=== PATIENT | female | born 1970 | race Caucasian/White ===

== ENCOUNTER 2021-07-16 07:59 | Observation (INO) ==
[~2021-07-16 07:59] MED LIST: Buffered Lidocaine 1% SYRIN 1 ml INTRADERM ONE; Lactated Ringers 1000 ml BAG 1,000 ML IV SCH
[2021-07-16] MEDS ORDERED: Buffered Lidocaine 1% SYRIN 1 ml INTRADERM ONE (08:55)
[2021-07-16] MEDS ORDERED: Midazolam 2 mg/2 ml VIAL 1 mg/ml 2 ml VIAL (2 mg) ONE (08:56)
[2021-07-16] MEDS ORDERED: Propofol 10 MG/ML 20 ML BTL ONE (09:56)
[2021-07-16] MEDS ORDERED: Succinylcholine 200 mg VIAL 20 mg/ml 10 ml VIAL (200 mg) ONE (09:56)
[2021-07-16] MEDS ORDERED: Lidocaine 2% PF 5 ML VIAL ONE (09:56)
[2021-07-16] MEDS ORDERED: fentaNYL 100 mcg/2 ml 50 MCG/ML VIAL ONE ×4 (09:57→16:47)
[2021-07-16] MEDS ORDERED: Methylene Blue 0.5 % 50 MG/10 ML AMP IV ONE (10:27)
[2021-07-16] MEDS ORDERED: Dexamethasone IV 4 MG/ML VIAL 1 ml VIAL ONE ×3 (10:33→14:10)
[2021-07-16] MEDS ORDERED: DiMENhydriNATE IV 50 mg/ml 1 ml VIAL IV PUSH PRN (10:40)
[2021-07-16] MEDS ORDERED: Naloxone 0.4 mg VIAL 0.4 mg/ml 1 ml VIAL IV PRN (10:40)
[2021-07-16] MEDS ORDERED: Clindamycin 600 MG/D5W BAG 600 MG/50 ML BAG IV ONE (10:49)
[2021-07-16] MEDS ORDERED: fentaNYL 250 mcg/5 ml 50 MCG/ML 5 ml VIAL (250 MCG) ONE (12:38)
[2021-07-16] MEDS ORDERED: Ondansetron 4 mg VIAL 2 MG/ML 2 ml VIAL ONE ×2 (14:10)
[2021-07-16] MEDS ORDERED: Acetaminophen IV 1 GM/100ML VI 100 ML ONE (14:39)
[2021-07-16] MEDS ORDERED: Acetaminophen IV 1 GM/100ML 100 ML IV ONE (14:45)
[2021-07-16] MEDS ORDERED: HYDROmorphone 0.5 MG/0.5 ML SYRINGE ONE ×2 (15:27→15:41)
[2021-07-16] MEDS: fentaNYL 100 mcg/2 ml 50 MCG/ML VIAL IV PRN ×4 (16:50→17:23)
[2021-07-16] MEDS ORDERED: oxyCODONE 5 mg/5 ml ORAL.SOLN UDC PO PRN (16:58)
[2021-07-16] MEDS ORDERED: Labetalol IV 5 MG/ML 20 ml VIAL IV PUSH PRN (17:08)
[2021-07-16] MEDS ORDERED: Labetalol IV 5 MG/ML 20 ml VIAL ONE (17:16)
[2021-07-16] MEDS ORDERED: Ondansetron 4 mg VIAL 2 MG/ML 2 ml VIAL IV PRN (17:22)
[2021-07-16] MEDS: oxyCODONE 5 mg/5 ml ORAL.SOLN UDC PO PRN (19:40)
[2021-07-16] MEDS ORDERED: LACTATED RINGERS 1000 ML BAG IV SCH (20:00)
[2021-07-16] MEDS: Clindamycin 600 MG/D5W BAG IV SCH (20:44)
[2021-07-16] MEDS: Venlafaxine XR 75 mg PO SCH (20:45)
[2021-07-16] MEDS ORDERED: Prochlorperazine 5 mg/ml 2 ml VIAL (10 mg) IV PRN (22:29)
[2021-07-17] MEDS: Clindamycin 600 MG/D5W BAG IV SCH ×2 (03:57→11:52)
[2021-07-17] MEDS: oxyCODONE 5 mg/5 ml ORAL.SOLN UDC PO PRN (09:00)
[2021-07-17] MEDS: Heparin 5000 UNITS/ML 1 mL VIAL SUBCUT SCH ×2 (09:00→22:34)
[2021-07-17] MEDS: Venlafaxine XR 75 mg PO SCH (22:33)
[2021-07-18] MEDS: oxyCODONE 5 mg/5 ml ORAL.SOLN UDC PO PRN (07:14)
[2021-07-18 07:25] VITALS: BP 127/64
[2021-07-18] MEDS: Heparin 5000 UNITS/ML 1 mL VIAL SUBCUT SCH (08:34)
== END 2021-07-18 11:00 | disposition home or self-care (01) ==
LOC: OR 07:59 → SSU 16:54 → INTOOBSV 16:54
PROVIDERS: ADMIT Hospitalist; ATTEND Hospitalist

== ENCOUNTER 2022-04-09 16:22 | Inpatient (IN) ==
[2022-04-09] MEDS ORDERED: Lactated Ringers 1000 ml BAG 1,000 ML IV ONE (16:47)
[2022-04-09 18:04] LABS: ABS Lymphocytes 0.4 10^3/ul (1.0-4.8); ABS Monocytes 0.4 10^3/ul (0-0.8); ABS Neutrophils 8.1 10^3/ul (1.5-7.7); Hematocrit 35 % (35-47); Hemoglobin 11.9 g/dL (12.0-16.0); Lymphocyte % 4.8 %; Mean Corpuscular HGB Conc 34 g/dL (31-36); Mean Corpuscular Hemoglobin 34 pg (27-31); Mean Corpuscular Volume 101 fL (80-97); Mean Platelet Volume 7.1 fL (7.4-10.4); Platelet Count 231 10^3/uL (150-450); Red Blood Count 3.47 10^6 /uL (3.70-4.87); Red Cell Distribution Width 14 % (10-15)
[2022-04-09 18:43] LABS: ALT 15 U/L (7-52); AST 39 U/L (13-39); Albumin 4.3 g/dL (3.2-5.2); Albumin/Globulin Ratio 1.7 (1-3); Alkaline Phosphatase 73 U/L (35-149); Anion Gap 9 mmol/L (2-11); Blood Urea Nitrogen 17 mg/dL (6-24); C Reactive Protein 7.61 mg/L (<8.01); CO2 Carbon Dioxide 26 mmol/L (22-32); Calcium 9.4 mg/dL (8.6-10.3); Chloride 100 mmol/L (101-111); Globulin 2.5 g/dL (2-4); Glucose 96 mg/dL (70-100); Magnesium 2.2 mg/dL (1.9-2.7); Potassium 3.9 mmol/L (3.5-5.0); Sodium 135 mmol/L (135-145); Total Protein 6.8 g/dL (6.4-8.9); eGFR CKD-EPI 59.3 (>60)
[2022-04-09 19:35] LABS: TSH Ultra Thyroid Stim Horm 66.99 mcIU/mL (0.34-5.60)
[2022-04-09] MEDS ORDERED: Dexamethasone IV 4 MG/ML VIAL 1 ml VIAL IV SLOW PU ONE (19:57)
[2022-04-09] MEDS ORDERED: Enoxaparin 40 MG/0.4 ML SYR SUBCUT SCH (21:00)
[2022-04-09] MEDS: NS 0.9% 1000 ml BAG 1,000 ML IV SCH (21:22)
[2022-04-09 21:50] LABS: Total T3 60 ng/dL (87-178)
[2022-04-09] MEDS: Pantoprazole VIAL 40 MG VIAL IV SCH (22:33)
[2022-04-09 22:38] LABS: Free T4 < 0.25 ng/dL (0.61-1.12)
[2022-04-09] MEDS ORDERED: Lorazepam PYXIS KEY PRN (23:34)
[2022-04-09] MEDS ORDERED: LORazepam 2 mg VIAL 1 ml IV PUSH PRN (23:34)
[2022-04-10] MEDS: Dexamethasone IV 4 MG/ML VIAL 1 ml VIAL IV SLOW PU SCH ×4 (03:41→22:18)
[2022-04-10] MEDS: NS 0.9% 1000 ml BAG 1,000 ML IV SCH (22:16)
[2022-04-10] MEDS: Pantoprazole VIAL 40 MG VIAL IV SCH (22:17)
[2022-04-11] MEDS: Dexamethasone IV 4 MG/ML VIAL 1 ml VIAL IV SLOW PU SCH ×4 (07:00→22:05)
[2022-04-11] MEDS: NS 0.9% 1000 ml BAG 1,000 ML IV SCH (08:19)
[2022-04-11] MEDS ORDERED: Enoxaparin 40 MG/0.4 ML SYR SUBCUT SCH (16:00)
[2022-04-11 16:15] LABS: Urine Appearance Clear; Urine Bilirubin Negative (Negative); Urine Blood 2+ (Negative); Urine Color Yellow; Urine Glucose Negative (Negative); Urine Ketones Trace (Negative); Urine Nitrite Negative (Negative); Urine Protein Negative (Negative); Urine Urobilinogen Negative (Negative)
[2022-04-11 17:05] LABS: Urine Bacteria Absent (Absent); Urine Red Blood Cell Trace(0-2/hpf) (Absent); Urine Squamous Epithelial Cell Present (Absent); Urine White Blood Cell Absent (Absent)
[2022-04-11] MEDS: Pantoprazole VIAL 40 MG VIAL IV SCH (22:05)
[2022-04-12] MEDS: NS 0.9% 1000 ml BAG 1,000 ML IV SCH (00:24)
[2022-04-12] MEDS: Dexamethasone IV 4 MG/ML VIAL 1 ml VIAL IV SLOW PU SCH ×2 (03:52→09:03)
[2022-04-12 16:12] VITALS: BP 109/71
== END 2022-04-12 16:43 | disposition home or self-care (01) | DRG 110 ==
LOC: ED 16:22 → INTOOBSV 20:40 → EDHOLD 20:40 → SUATTDRO 20:40 → SSU 04-10 00:23
PROVIDERS: ADMIT Student in an Organized Health Care Education/Training Program; ATTEND Hospitalist

== ENCOUNTER 2023-08-04 15:26 | Inpatient (IN) ==
[2023-08-04] MEDS ORDERED: Lactated Ringers 1000 ml BAG 1,000 ML IV ONE ×3 (17:38→22:30)
[2023-08-04 17:51] LABS: Urine Appearance Clear; Urine Bilirubin Negative (Negative); Urine Blood 1+ (Negative); Urine Color Yellow; Urine Glucose Negative (Negative); Urine Ketones Negative (Negative); Urine Nitrite Negative (Negative); Urine Protein Negative (Negative); Urine Specific Gravity 1.014 (1.002-1.030); Urine Urobilinogen Positive (Negative)
[2023-08-04 17:58] LABS: Hematocrit 24.3 % (35-45); Red Blood Count 2.43 10^6/uL (3.63-4.92); Red Cell Distribution Width 25.8 % (12-17); White Blood Count 13.2 10^3/uL (3.8-11.8)
[2023-08-04 18:01] LABS: Urine Bacteria Absent (Absent); Urine Red Blood Cell 3+(>10/hpf) (Absent); Urine Squamous Epithelial Cell Present (Absent); Urine White Blood Cell 1+(6-10/hpf) (Absent)
[2023-08-04 18:09] LABS: Albumin 3.1 g/dL (3.2-5.2); Albumin/Globulin Ratio 1.1 (1-3); Calcium 8.3 mg/dL (8.6-10.3); Creatinine, Serum 0.86 mg/dL (0.51-0.95); Globulin 2.9 g/dL (2-4); Magnesium 1.6 mg/dL (1.9-2.7); Potassium 3.8 mmol/L (3.5-5.0); Total Bilirubin 0.6 mg/dL (0.2-1.0); eGFR CKD-EPI 81.7 (>60)
[2023-08-04 18:17] LABS: ABS Lymphocytes 0.9 10^3/uL (1.0-4.8); ABS Monocytes 0.8 10^3/uL (0.0-0.9); ABS Neutrophils 11.4 10^3/uL (1.5-7.6); Mean Platelet Volume 7.4 fL (7.5-11.2); Platelet Count 94 10^3/uL (150-450)
[2023-08-04] MEDS ORDERED: Magnesium Sulfate IV 1GM/100ML 1 GM/100 ML BAG IV ONE (18:20)
[2023-08-04 18:34] LABS: TSH Ultra Thyroid Stim Horm 2.86 mcIU/mL (0.34-5.60)
[2023-08-04 19:25] LABS: High Sensitivity Troponin 1 Hr 9 pg/mL (<15)
[2023-08-04 20:11] LABS: C Reactive Protein 87.47 mg/L (<8.01)
[2023-08-04 20:15] LABS: Rapid COVID-19 Molecular Undetected (Undetected)
[2023-08-04] MEDS ORDERED: Azithromycin 500 mg/250 ml NS 500 MG/250 ML BAG IVPB ONE (20:28)
[2023-08-04] MEDS ORDERED: Cefepime 2 GM in Dextrose 2 GM/50 ML BAG IV ONE (20:28)
[2023-08-04 20:38] LABS: Influenza A Molecular Negative (Negative); Influenza B Molecular Negative (Negative)
[2023-08-04] MEDS ORDERED: Norepinephrine 4 MG/250mL D5W 4,000 MCG/250 ML BAG IV SCH (22:00)
[2023-08-04] MEDS ORDERED: Lactated Ringers 1000 ml BAG 1,000 ML IV SCH (23:45)
[2023-08-05] MEDS: Lactated Ringers 1000 ml BAG 1,000 ML IV SCH ×2 (00:59→09:37)
[2023-08-05] MEDS ORDERED: cefTRIAXone 1 gm/50 mL D5W 1 GM/50 ML BAG IV SCH ×2 (09:00)
[2023-08-05] MEDS: Venlafaxine XR 75 mg PO SCH (09:28)
[2023-08-05] MEDS: Cefepime 2 GM in Dextrose 2 GM/50 ML BAG IV SCH ×2 (09:29→23:09)
[2023-08-05] MEDS ORDERED: Vancomycin 1,000 MG in NS 0.9% 250 ml 250 ML IVPB ONE (10:00)
[2023-08-05] MEDS ORDERED: Vancomycin 750 MG in NS 0.9% 250 ML IVPB SCH (11:00)
[2023-08-05 13:01] LABS: Hematocrit 15.5 % (35-45); Hemoglobin 5.2 g/dL (11.5-14.3); Mean Corpuscular Hemoglobin 33.9 pg (27-33); Mean Corpuscular Hgb Conc 33.7 g/dL (31-36); Mean Corpuscular Volume 100.8 fL (80-97); Red Blood Count 1.54 10^6/uL (3.63-4.92); Red Cell Distribution Width 25.6 % (12-17); White Blood Count 7.3 10^3/uL (3.8-11.8)
[2023-08-05 13:04] LABS: Albumin 2.6 g/dL (3.2-5.2); Albumin/Globulin Ratio 0.9 (1-3); Creatinine, Serum 0.63 mg/dL (0.51-0.95); Globulin 2.8 g/dL (2-4); Total Bilirubin 0.8 mg/dL (0.2-1.0); Total Protein 5.4 g/dL (6.4-8.9); eGFR CKD-EPI 107.3 (>60)
[2023-08-05 13:52] LABS: Hematocrit 22.1 % (35-45); Hemoglobin 7.6 g/dL (11.5-14.3); Mean Corpuscular Hemoglobin 34.3 pg (27-33); Mean Corpuscular Hgb Conc 34.3 g/dL (31-36); Mean Corpuscular Volume 99.8 fL (80-97); Mean Platelet Volume 7.6 fL (7.5-11.2); Platelet Count 74 10^3/uL (150-450); Red Blood Count 2.21 10^6/uL (3.63-4.92); Red Cell Distribution Width 25.5 % (12-17); White Blood Count 9.5 10^3/uL (3.8-11.8)
[2023-08-05 13:58] LABS: ABS Lymphocytes 0.4 10^3/uL (1.0-4.8); ABS Monocytes 0.5 10^3/uL (0.0-0.9); ABS Neutrophils 6.3 10^3/uL (1.5-7.6); Lymphocyte % 6.1 %; Mean Platelet Volume 7.6 fL (7.5-11.2); Nucleated Red Blood Cells % 0.1 %/100WBC (0.0-0.8); Platelet Count 54 10^3/uL (150-450)
[2023-08-05] MEDS ORDERED: Lactated Ringers 1000 ml BAG 1,000 ML IV SCH (15:01)
[2023-08-05] MEDS: Vancomycin 750 MG in NS 0.9% 250 ML IVPB SCH (23:47)
[2023-08-06 06:09] LABS: Calcium 8.2 mg/dL (8.6-10.3); Creatinine, Serum 0.62 mg/dL (0.51-0.95); Hematocrit 20.3 % (35-45); Hemoglobin 6.8 g/dL (11.5-14.3); Magnesium 1.7 mg/dL (1.9-2.7); Mean Corpuscular Hemoglobin 33.6 pg (27-33); Mean Corpuscular Hgb Conc 33.4 g/dL (31-36); Mean Corpuscular Volume 100.7 fL (80-97); Mean Platelet Volume 7.9 fL (7.5-11.2); Phosphorus 2.3 mg/dL (2.5-5.0); Platelet Count 68 10^3/uL (150-450); Potassium 3.8 mmol/L (3.5-5.0); Red Blood Count 2.02 10^6/uL (3.63-4.92); Red Cell Distribution Width 25.5 % (12-17); White Blood Count 5.7 10^3/uL (3.8-11.8); eGFR CKD-EPI 107.8 (>60)
[2023-08-06 06:23] LABS: ABS Lymphocytes 0.5 10^3/uL (1.0-4.8); ABS Monocytes 0.3 10^3/uL (0.0-0.9); ABS Neutrophils 4.9 10^3/uL (1.5-7.6); ABS Nucleated RBC 0.01 10^3/ul; Eosinophil % 0.4 %; Lymphocyte % 8.2 %; Nucleated Red Blood Cells % 0.1 %/100WBC (0.0-0.8)
[2023-08-06] MEDS: Cefepime 2 GM in Dextrose 2 GM/50 ML BAG IV SCH ×2 (09:49→21:31)
[2023-08-06] MEDS: Potassium & Sodium Phos 250 mg = 1 PACKET PO SCH ×2 (09:52→21:34)
[2023-08-06] MEDS: Venlafaxine XR 75 mg PO SCH (09:52)
[2023-08-06] MEDS: Vancomycin 750 MG in NS 0.9% 250 ML IVPB SCH (14:23)
[2023-08-07] MEDS: Vancomycin 750 MG in NS 0.9% 250 ML IVPB SCH ×2 (00:01→11:59)
[2023-08-07 06:57] LABS: Calcium 8.2 mg/dL (8.6-10.3); Creatinine, Serum 0.68 mg/dL (0.51-0.95); Magnesium 1.6 mg/dL (1.9-2.7); Phosphorus 2.6 mg/dL (2.5-5.0); Potassium 3.8 mmol/L (3.5-5.0); eGFR CKD-EPI 105.4 (>60)
[2023-08-07 06:59] LABS: Hematocrit 25.1 % (35-45); Hemoglobin 8.6 g/dL (11.5-14.3); Mean Corpuscular Hemoglobin 32.9 pg (27-33); Mean Corpuscular Hgb Conc 34.2 g/dL (31-36); Mean Platelet Volume 7.7 fL (7.5-11.2); Platelet Count 77 10^3/uL (150-450); Red Blood Count 2.62 10^6/uL (3.63-4.92); White Blood Count 4.6 10^3/uL (3.8-11.8)
[2023-08-07 07:22] LABS: ABS Eosinophils 0.1 10^3/uL (0.0-0.5); ABS Lymphocytes 0.5 10^3/uL (1.0-4.8); ABS Monocytes 0.5 10^3/uL (0.0-0.9); ABS Neutrophils 3.6 10^3/uL (1.5-7.6); ABS Nucleated RBC 0.01 10^3/ul; Eosinophil % 1.2 %; Lymphocyte % 10.8 %; Nucleated Red Blood Cells % 0.1 %/100WBC (0.0-0.8)
[2023-08-07] MEDS ORDERED: Magnesium Sulfate 2 gm BAG 2 GM/50 ML BAG IVPB ONE (07:50)
[2023-08-07] MEDS: Potassium & Sodium Phos 250 mg = 1 PACKET PO SCH ×2 (09:12→20:05)
[2023-08-07] MEDS: Venlafaxine XR 75 mg PO SCH (09:13)
[2023-08-07] MEDS ORDERED: Vancomycin Trough Check NOTE FOLLOW UP ONE (10:30)
[2023-08-07] MEDS: Cefepime 2 GM in Dextrose 2 GM/50 ML BAG IV SCH ×2 (10:45→19:56)
[2023-08-07] MEDS ORDERED: Vancomycin per Pharmacy 1 EA NOTE FOLLOW UP PRN (16:05)
[2023-08-07] MEDS: Vancomycin 1,000 MG in NS 0.9% 250 ml 250 ML IVPB SCH (22:23)
[2023-08-08 05:57] LABS: Hematocrit 24.6 % (35-45); Hemoglobin 8.4 g/dL (11.5-14.3); Mean Corpuscular Hemoglobin 32.6 pg (27-33); Mean Corpuscular Hgb Conc 34.3 g/dL (31-36); Mean Platelet Volume 7.7 fL (7.5-11.2); Platelet Count 83 10^3/uL (150-450); Red Blood Count 2.59 10^6/uL (3.63-4.92); White Blood Count 4.3 10^3/uL (3.8-11.8)
[2023-08-08 06:06] LABS: Creatinine, Serum 0.6 mg/dL (0.51-0.95); Magnesium 1.7 mg/dL (1.9-2.7); Potassium 3.9 mmol/L (3.5-5.0); eGFR CKD-EPI 108.6 (>60)
[2023-08-08 06:29] LABS: ABS Eosinophils 0.1 10^3/uL (0.0-0.5); ABS Lymphocytes 0.6 10^3/uL (1.0-4.8); ABS Monocytes 0.5 10^3/uL (0.0-0.9); ABS Neutrophils 3.1 10^3/uL (1.5-7.6); ABS Nucleated RBC 0.01 10^3/ul; Anisocytosis 2+; Eosinophil % 1.5 %; Lymphocyte % 13.8 %; Nucleated Red Blood Cells % 0.2 %/100WBC (0.0-0.8); Polychromasia 1+
[2023-08-08] MEDS ORDERED: Magnesium Sulfate IV 1GM/100ML 1 GM/100 ML BAG IV ONE (07:31)
[2023-08-08] MEDS: Potassium & Sodium Phos 250 mg = 1 PACKET PO SCH (08:40)
[2023-08-08] MEDS: Venlafaxine XR 75 mg PO SCH (08:41)
[2023-08-08] MEDS: Cefepime 2 GM in Dextrose 2 GM/50 ML BAG IV SCH (09:26)
[2023-08-08 09:42] VITALS: BP 101/64
[2023-08-08] MEDS: Vancomycin 1,000 MG in NS 0.9% 250 ml 250 ML IVPB SCH (10:05)
[2023-08-09] MEDS ORDERED: Vancomycin Trough Check NOTE FOLLOW UP ONE (08:30)
[2023-08-09 10:43] LABS: HCG Pregnancy 5.08 mIU/mL
== END 2023-08-08 14:55 | disposition home or self-care (01) | DRG 720 ==
LOC: ED 15:26 → EDHOLD 22:37 → SUATTDRO 22:37 → MED 08-05 03:40
PROVIDERS: ADMIT Internal Medicine; ATTEND Hospitalist